=== PATIENT | male | born 1935 | race African-American/Black ===

== ENCOUNTER 2018-11-27 08:32 | Inpatient (IN) | payer OTHER ==
[~2018-11-27] VITALS: Ht 172.7 cm; Wt 71.7 kg
[~2018-11-27 08:32] MED LIST: LEVO50TA8 PO; POTA10TA2 PO; SIMV20TA6 PO; TERA2CAP4 PO
[2018-11-27 09:33] LABS: BASOPHILS % 0.7 % (0.0-2.0); EOSINOPHILS % 1.2 % (0.0-5.0); HEMATOCRIT. 36.2 % (42.0-52.0); HEMOGLOBIN. 11.8 g/dL (14.0-18.0); LYMPHOCYTES % 13.6 % (20.0-50.0); MEAN CORPUSCULAR HEMOGLOBIN 31.5 pg (28.0-32.0); MEAN CORPUSCULAR VOLUME 96.5 fL (80.0-94.0); MEAN PLATELET VOLUME 8.3 fl (7.4-10.4); MONOCYTES % 10.1 % (2.0-8.0); NEUTROPHILS % 74.4 % (40.0-76.0); PLATELET 183 x1000/uL (130-400); RED BLOOD CELL COUNT 3.75 mill/uL (4.7-6.1); RED CELL DISTRIBUTION WIDTH 15.4 % (11.6-14.6)
[2018-11-27 09:39] LABS: CHLORIDE 114 mEq/L (98-107)
[2018-11-27] MEDS ORDERED: FUROSEMIDE 40MG/4ML VIAL IV NR (10:30)
[2018-11-27] MEDS ORDERED: ACETAMINOPHEN 325MG TABLET PO PRN (10:30)
[2018-11-27] MEDS ORDERED: MAGNESIUM/ALUMINUM HYDROXIDE/SIMETHICONE 30ML UDC PO PRN (10:30)
[2018-11-27] MEDS ORDERED: IPRATROPIUM/ALBUTEROL 0.5-3(2.5)MG/3ML NEB INH PRN (10:30)
[2018-11-27] MEDS ORDERED: CLONIDINE 0.1MG TABLET PO PRN (10:30)
[2018-11-27] MEDS ORDERED: ONDANSETRON HCL 4MG/2ML INJ IV PRN (10:30)
[2018-11-27] MEDS ORDERED: HYDROCODONE/ACETAMINOPHEN 5/325MG TABLET PO PRN (10:30)
[2018-11-27] MEDS ORDERED: DOCUSATE SODIUM 100MG CAPSULE PO PRN (10:30)
[2018-11-27] MEDS ORDERED: DIPHENHYDRAMINE 50MG/ML VIAL IV PRN (10:30)
[2018-11-27] MEDS ORDERED: GUAIFENESIN 200MG/10ML SUGAR FREE UDC PO PRN (10:30)
[2018-11-27 10:49] LABS: PHOSPHORUS 3.3 mg/dL (2.5-4.9)
[2018-11-27] MEDS ORDERED: FUROSEMIDE 40MG/4ML VIAL IV SCH (17:00)
[2018-11-28] VITALS (8 sets, daily range): BP systolic 97–177; BP diastolic 58–106
[2018-11-28 06:36] LABS: CHLORIDE 110 mEq/L (98-107)
[2018-11-28 06:38] LABS: BASOPHILS % 0.6 % (0.0-2.0); EOSINOPHILS % 0.3 % (0.0-5.0); HEMOGLOBIN. 12.1 g/dL (14.0-18.0); LYMPHOCYTES % 12.7 % (20.0-50.0); MEAN CORPUSCULAR HEMOGLOBIN 32.2 pg (28.0-32.0); MEAN CORPUSCULAR VOLUME 95.8 fL (80.0-94.0); MEAN PLATELET VOLUME 9.1 fl (7.4-10.4); MONOCYTES % 9.4 % (2.0-8.0); PLATELET 188 x1000/uL (130-400); RED BLOOD CELL COUNT 3.76 mill/uL (4.7-6.1); RED CELL DISTRIBUTION WIDTH 15.2 % (11.6-14.6)
[2018-11-28 06:56] LABS: LDL CHOLESTEROL 83 mg/dL (5-100); TOTAL IRON BINDING CAPACITY 279 ug/dL (250-450)
[2018-11-28 06:58] LABS: HDL CHOLESTEROL 78 mg/dL (40-59)
[2018-11-28] MEDS: POTASSIUM CHLORIDE 10MEQ TABLET SR PO SCH (08:00)
[2018-11-28] MEDS: FUROSEMIDE 100MG/10ML VIAL IV SCH ×2 (09:00→17:00)
[2018-11-28] MEDS: AMLODIPINE 2.5MG TABLET PO SCH (09:00)
[2018-11-28] MEDS ORDERED: FUROSEMIDE 40MG/4ML VIAL IV SCH (09:00)
[2018-11-28] MEDS: LEVOTHYROXINE SODIUM 50MCG TABLET PO SCH (11:45)
[2018-11-28 12:36] LABS: T4 FREE 0.98 ng/dL (0.76-1.46)
[2018-11-29] VITALS: BP 102/60
[2018-11-29 04:00] VITALS: BP 106/63
[2018-11-29 07:00] LABS: CHLORIDE 106 mEq/L (98-107)
[2018-11-29 07:07] LABS: EOSINOPHILS % 0.7 % (0.0-5.0); HEMATOCRIT. 35.3 % (42.0-52.0); LYMPHOCYTES % 18.1 % (20.0-50.0); MEAN CORPUSCULAR HEMOGLOBIN 32.4 pg (28.0-32.0); MEAN CORPUSCULAR VOLUME 95.4 fL (80.0-94.0); MEAN PLATELET VOLUME 9.1 fl (7.4-10.4); MONOCYTES % 14.8 % (2.0-8.0); NEUTROPHILS % 65.4 % (40.0-76.0); PLATELET 191 x1000/uL (130-400); RED CELL DISTRIBUTION WIDTH 15.1 % (11.6-14.6)
[2018-11-29] MEDS: POTASSIUM CHLORIDE 10MEQ TABLET SR PO SCH (07:43)
[2018-11-29] MEDS: LEVOTHYROXINE SODIUM 50MCG TABLET PO SCH (07:43)
[2018-11-29] MEDS: AMLODIPINE 2.5MG TABLET PO SCH (07:43)
[2018-11-29] MEDS: FUROSEMIDE 100MG/10ML VIAL IV SCH (07:43)
[2018-11-29 08:00] VITALS: BP 135/75
[2018-11-29] MEDS ORDERED: AMLO2.5T45 PO (09:36)
[2018-11-29 10:27] VITALS: BP 135/75
== END 2018-11-29 11:31 | disposition home or self-care (01) | DRG 291 ==
LOC: ER 08:32 → 7WST 10:15 → ENRESERV 20:31
PROVIDERS: ADMIT Internal Medicine; ATTEND Internal Medicine
DX: I11.0 Hypertensive heart disease with heart failure (principal); J96.00 Acute respiratory failure, unspecified whether with hypoxia or hypercapnia; I50.23 Acute on chronic systolic (congestive) heart failure; D53.9 Nutritional anemia, unspecified; E03.9 Hypothyroidism, unspecified; E78.5 Hyperlipidemia, unspecified; E83.51 Hypocalcemia; I34.0 Nonrheumatic mitral (valve) insufficiency; I25.10 Atherosclerotic heart disease of native coronary artery without angina pectoris; I27.20 Pulmonary hypertension, unspecified; I25.2 Old myocardial infarction; Z85.038 Personal history of other malignant neoplasm of large intestine
CPT/HCPCS: 36415; 71045; 80048; 80061; 82550; 82728; 83036; 83540; 83550; 83735; 83880; 84100; 84439; 84443; 84480; 84484; 93005; 93306; 93970; 96374; 96375; 97162; 97166; 99285; J1940